=== PATIENT | male | born 2000 | race Caucasian/White ===

== ENCOUNTER 2022-03-20 13:48 | Emergency (ER) | payer OTHER, BC ==
[2022-03-20] MEDS ORDERED: Lidocaine 1% 5 ML VIAL INJECT ONE (14:40)
== END 2022-03-20 17:17 | disposition home or self-care (01) ==
LOC: MW.ED 13:48
DX: S61.012A Laceration without foreign body of left thumb without damage to nail, initial encounter (principal); Z88.0 Allergy status to penicillin; W26.8XXA Contact with other sharp object(s), not elsewhere classified, initial encounter
CPT/HCPCS: 12002; 73130-26-LT; 73130-LT; 99283

== ENCOUNTER 2022-06-22 22:20 | Emergency (ER) | payer BC, OTHER ==
[2022-06-23] MEDS ORDERED: Ibuprofen 400 MG Tab PO ONE (00:01)
[2022-06-23] MEDS ORDERED: Acetaminophen 325 MG Tab PO ONE (00:01)
[2022-06-23 00:34] LABS: CORONAVIRUS COVID-19 NAA POSITIVE (NEGATIVE); INFLUENZA A NAA NEGATIVE (NEGATIVE); INFLUENZA B NAA NEGATIVE (NEGATIVE); RESPIRATORY SYNCYTIAL VIR NAA NEGATIVE (NEGATIVE)
== END 2022-06-23 01:06 | disposition home or self-care (01) ==
LOC: MW.ED 22:20
DX: U07.1 COVID-19 (principal)
CPT/HCPCS: 0241U; 99284; A9270

== ENCOUNTER 2023-02-04 16:03 | Emergency (ER) | payer OTHER, BC ==
[2023-02-04] MEDS ORDERED: Cephalexin 500 MG Cap PO ONE (19:33)
[2023-02-04] MEDS ORDERED: Sulfamethoxazole/Trimethoprim 800-160 MG Tab PO ONE (19:35)
== END 2023-02-04 19:53 | disposition home or self-care (01) ==
LOC: MW.ED 16:03
DX: S61.412A Laceration without foreign body of left hand, initial encounter (principal); L08.9 Local infection of the skin and subcutaneous tissue, unspecified; Z87.891 Personal history of nicotine dependence; Z88.0 Allergy status to penicillin; W23.0XXA Caught, crushed, jammed, or pinched between moving objects, initial encounter
CPT/HCPCS: 73130; 99283; A9270; 99282

== ENCOUNTER 2023-09-02 10:29 | Emergency (ER) | payer OTHER, BC ==
[2023-09-02] MEDS: Lidocaine 1% 5 ML VIAL INJECT STA (12:18)
== END 2023-09-02 12:44 | disposition home or self-care (01) ==
LOC: MW.ED 10:29
DX: M79.5 Residual foreign body in soft tissue (principal); Z90.49 Acquired absence of other specified parts of digestive tract; Z88.0 Allergy status to penicillin
CPT/HCPCS: 73090-26-LT; 73090-LT; 99283; J3490